=== PATIENT | female | born 1995 | race African-American/Black ===

== ENCOUNTER 2017-06-29 16:53 | Emergency (ER) | payer OTHER ==
[~2017-06-29] VITALS: Ht 162.6 cm; Wt 57.1 kg
[~2017-06-29 16:53] MED LIST: CLEOCIN HCL150 MG PO; DOXYCYCLINE 10100 MG PO; IBUPROFEN 600600 M1 PO; NOHOMEMEDICATIONS; PENICILLIN VK500 M1 PO
[2017-06-29 17:13] LABS: URINE BILIRUBIN NEGATIVE (Negative); URINE BLOOD NEGATIVE (Negative); URINE CLARITY CLEAR; URINE COLOR YELLOW; URINE GLUCOSE-RANDOM* NEGATIVE (Negative); URINE KETONES NEGATIVE (Negative); URINE LEUKOCYTES-REFLEX NEGATIVE (Negative); URINE NITRITE-REFLEX NEGATIVE (Negative); URINE PROTEIN (DIPSTICK) NEGATIVE (Negative); URINE SPECIFIC GRAVITY <= 1.005 (1.005-1.035); URINE UROBILINOGEN 0.2 E.U./dl (0.2-1.0)
== END 2017-06-29 18:11 | disposition home or self-care (01) ==
LOC: ER 16:53
PROVIDERS: Physician Assistant
DX: N72 Inflammatory disease of cervix uteri (principal); N89.8 Other specified noninflammatory disorders of vagina; Z20.2 Contact with and (suspected) exposure to infections with a predominantly sexual mode of transmission; F17.210 Nicotine dependence, cigarettes, uncomplicated

== ENCOUNTER 2018-07-17 20:35 | Emergency (ER) | payer OTHER ==
[~2018-07-17] VITALS: Ht 165.1 cm; Wt 58.1 kg
--- NOTE | ~2018-07-17 | EKG ---
[address] [place] [address] ELECTROCARDIOGRAM REPORT Name: NABEEL GASTONNDRA Room #: DEP Adrianna#: [id number] ������������������ Admission: 07/17/18 ������������������ Attend Phys: Discharge: 07/17/18 ������������������ Date of : [birth year] Report #: [id number] ����������������������������������������������������������������� [id number] THIS REPORT FOR: //name// [facility] ED Test Date: 2018-07-17 Test Time: 20:43:25 Pat Name: NABEEL GASTON Department: Room: Gender: F [employer]: [place] : 1995 Requested By: Kacie Davison Order Number: [id number] MD: Monty Davila Measurements Intervals [place] Rate: 80 P: 58 SD: 173 QRS: 85 QRSD: 80 T: -5 QT: 351 QTc: 405 Interpretive Statements Sinus rhythm Nonspecific ST/T wave changes No previous ECG available for comparison Electronically Signed On 07-18-2018 23:44:25 CDT by Monty Davila [email or web address] ��������������������������������������������� ���������������������������������������� By: ��������������������������������������������� 2043 Monty Davila MD /EPI
[2018-07-17] MEDS ORDERED: TESSALON PERLE100 MG PO (21:59)
[2018-07-17] MEDS ORDERED: GUAIFEN-CODEINE10 ML PO (21:59)
[2018-07-17 22:14] VITALS: BP 128/88
--- NOTE | 2018-07-29 17:13 | EKG ---
[address] [address] ELECTROCARDIOGRAM REPORT Name: NABEEL GASOTN Room #: [facility]P [facility] [id number] ������������������ Admission: 07/17/18 ������������������ Attend Phys: Discharge: 07/17/18 ������������������ Date of : [birth year] Report #: [id number] ����������������������������������������������������������������� [id number] THIS REPORT FOR: //name// [facility] ED Test Date: 2018-07-17 Test Time: 20:43:25 Pat Name: NABEEL GASTON Department: Room: Gender: F [employer]: [place] : 1995 Requested By: Kacie Davison Order Number: [id number] MD: Riley Simmons Measurements Intervals [place] Rate: 80 P: 58 VT: 173 QRS: 85 QRSD: 80 T: -5 QT: 351 QTc: 405 Interpretive Statements Sinus rhythm Nonspecific ST/T wave changes No previous ECG available for comparison Electronically Signed On 07-29-2018 17:13:35 CDT by Riley Simmons [email or web address] ��������������������������������������������� <ELECTRONICALLY SIGNED> ���������������������������������������� By: Riley Simmons MD ��������������������������������������������� 07/29/18 1713 42 2043 Riley Simmons MD /[place]
== END 2018-07-17 22:15 | disposition home or self-care (01) ==
LOC: ER 20:35
DX: J06.9 Acute upper respiratory infection, unspecified (principal); R07.89 Other chest pain

== ENCOUNTER 2019-07-11 06:58 | Emergency (ER) | payer OTHER ==
[~2019-07-11] VITALS: Ht 162.6 cm; Wt 58.1 kg
[~2019-07-11 06:58] MED LIST changes: +GUAIFEN-CODEINE10 ML PO; +TESSALON PERLE100 MG PO
[2019-07-11 08:20] VITALS: BP 137/67
== END 2019-07-11 08:20 | disposition home or self-care (01) ==
LOC: ER 06:58
DX: S01.81XA Laceration without foreign body of other part of head, initial encounter (principal); Y08.89XA Assault by other specified means, initial encounter; Y93.89 Activity, other specified; Y92.89 Other specified places as the place of occurrence of the external cause; Y99.8 Other external cause status

== ENCOUNTER 2019-07-18 16:29 | Emergency (ER) | payer OTHER ==
[~2019-07-18] VITALS: Ht 167.6 cm; Wt 55.3 kg
[2019-07-18 16:29] VITALS: BP 138/79
== END 2019-07-18 16:44 | disposition home or self-care (01) ==
LOC: ER 16:29
DX: S01.81XD Laceration without foreign body of other part of head, subsequent encounter (principal); F17.210 Nicotine dependence, cigarettes, uncomplicated; X58.XXXD Exposure to other specified factors, subsequent encounter

== ENCOUNTER 2021-03-08 10:26 | Emergency (ER) | payer OTHER ==
[~2021-03-08] VITALS: Ht 165.1 cm; Wt 56.7 kg
[2021-03-08 12:27] LABS: URINE BILIRUBIN NEGATIVE (Negative); URINE BLOOD TRACE (Negative); URINE CLARITY CLEAR; URINE COLOR YELLOW; URINE GLUCOSE-RANDOM* NEGATIVE (Negative); URINE KETONES NEGATIVE (Negative); URINE LEUKOCYTES-REFLEX NEGATIVE (Negative); URINE NITRITE-REFLEX NEGATIVE (Negative); URINE PROTEIN (DIPSTICK) NEGATIVE (Negative); URINE UROBILINOGEN 0.2 E.U./dl (0.2-1.0)
[2021-03-08 14:45] VITALS: BP 130/60
== END 2021-03-08 14:46 | disposition home or self-care (01) ==
LOC: ER 10:26
PROVIDERS: Emergency Medicine
DX: O20.9 Hemorrhage in early pregnancy, unspecified (principal); R10.2 Pelvic and perineal pain; Z3A.01 Less than 8 weeks gestation of pregnancy; F17.210 Nicotine dependence, cigarettes, uncomplicated